=== PATIENT | male | born 1955 | race Asian ===

== ENCOUNTER 2019-09-08 05:10 | Day surgery (SDC) | payer OTHER ==
[~2019-09-08] VITALS: Ht 162.6 cm; Wt 82.7 kg
[~2019-09-08 05:10] MED LIST: ALPRAZolam 0.5 MG TABLET PO ONE; CYCLOPENTOLATE HCL 1% 2 ML OPHTHALMIC SOLUTION ONE; KETOROLAC TROMETHAMINE 0.5% 5 ML OPHTHALMIC SOLUTION ONE; MOXIFLOXACIN HCL 0.5% 3 ML OPHTHALMIC SOLUTION ONE; PHENYLEPHRINE HCL 2.5% 2 ML OPHTHALMIC SOLUTION ONE; RINGERS SOLUTION,LACTATED 500 ML IV ONE; TETRACAINE HCL/PF 0.5% 4 ML OPHTHALMIC SOLUTION ONE; TROPICAMIDE 1% 2 ML OPHTHALMIC SOLUTION ONE
[2019-09-08] MEDS ORDERED: LIDOCAINE/PF 1% 2 ML VIAL IM ONE (05:11)
[2019-09-08] MEDS ORDERED: EPINEPHrine 1:1,000 [1 MG/ML] AMP IM ONE (05:11)
[2019-09-08] MEDS ORDERED: HYALURONATE SODIUM 12 MG/ML 0.8 ML SYRINGE IO ONE (05:11)
[2019-09-08] MEDS ORDERED: HYALURONATE SOD/CHONDROITIN SOD 0.5 ML VIAL IO ONE (05:11)
[2019-09-08] MEDS ORDERED: POVIDONE-IODINE 10% 15 ML SOLUTION UD TP ONE (05:11)
[2019-09-08] MEDS ORDERED: ALLO300T2 PO (05:45)
[2019-09-08] MEDS ORDERED: [UNRECOGNIZED DRUG - CODE] PO (05:45)
[2019-09-08] MEDS ORDERED: ASCO500 PO (05:45)
[2019-09-08] MEDS ORDERED: SIMV-46 PO (05:45)
[2019-09-08] MEDS ORDERED: FISH1CAP63 PO (05:45)
[2019-09-08] MEDS ORDERED: LOSA50TA64 PO (05:45)
[2019-09-08] MEDS ORDERED: RINGERS SOLUTION,LACTATED 500 ML IV ONE (06:00)
[2019-09-08] MEDS: TROPICAMIDE 1% 2 ML OPHTHALMIC SOLUTION OS SCH ×3 (06:12→06:23)
[2019-09-08] MEDS: PHENYLEPHRINE HCL 2.5% 2 ML OPHTHALMIC SOLUTION OS SCH ×3 (06:12→06:23)
[2019-09-08] MEDS: TETRACAINE HCL/PF 0.5% 4 ML OPHTHALMIC SOLUTION OS SCH ×3 (06:12→06:23)
[2019-09-08] MEDS: KETOROLAC TROMETHAMINE 0.5% 5 ML OPHTHALMIC SOLUTION OS SCH ×3 (06:12→06:24)
[2019-09-08] MEDS: CYCLOPENTOLATE HCL 1% 2 ML OPHTHALMIC SOLUTION OS SCH ×3 (06:12→06:23)
[2019-09-08] MEDS: MOXIFLOXACIN HCL 0.5% 3 ML OPHTHALMIC SOLUTION OS SCH ×3 (06:12→06:24)
[2019-09-08] MEDS ORDERED: PrednisoLONE ACETATE 1% 5 ML OPHTHALMIC SUSPENSION ONE (06:41)
[2019-09-08] MEDS ORDERED: PHENYLEPHRINE IO ONE (06:45)
[2019-09-08] MEDS ORDERED: KETOROLAC IO ONE (06:45)
[2019-09-08] MEDS ORDERED: EPINEPHrine 1:1,000 [1 MG/ML] AMP ONE (06:50)
[2019-09-08] MEDS ORDERED: NEOMYCIN/POLYMYXIN B/DEXAMETH 3.5 GM OPHTHALMIC OINTMENT ONE (06:51)
[2019-09-08] MEDS ORDERED: MIDAZOLAM HCL 2 MG/2 ML VIAL IVP ONE (12:00)
[2019-09-08] MEDS ORDERED: FentaNYL CITRATE-PF 100 MCG/2 ML VIAL IVP ONE (12:00)
== END 2019-09-08 09:20 | disposition home or self-care (01) ==
LOC: SURGERY 05:10
PROVIDERS: ATTEND Ophthalmology
DX: H26.8 Other specified cataract (principal); I10 Essential (primary) hypertension; E78.5 Hyperlipidemia, unspecified; M10.9 Gout, unspecified; E66.3 Overweight; Z68.31 Body mass index [BMI] 31.0-31.9, adult; Z79.899 Other long term (current) drug therapy
CPT/HCPCS: 66984; 93005; J0171; J2250; J3010; J3490 ×2; J7120; V2632